=== PATIENT | male | born 1960 | race African-American/Black ===

== ENCOUNTER 2024-09-11 06:24 | Day surgery (SDC) | payer OTHER ==
[2024-09-04 12:39] VITALS: BMI 32.1
[2024-09-11] MEDS ORDERED: GENTAMICIN SO4 80 MG/2 ML VIAL ONE (07:14)
[2024-09-11] MEDS ORDERED: BUPIVACAINE HCL/PF 0.5% (5MG/ML) 10 ML VIAL ONE (07:14)
[2024-09-11] MEDS ORDERED: LIDOCAINE HCL 1%, 10 MG/ML (20ML VIAL) ONE (07:14)
[2024-09-11] MEDS ORDERED: DEXAMETHASONE SOD PHOSPHATE 4 MG/1 ML VIAL ONE (07:14)
[2024-09-11] MEDS ORDERED: ONDANSETRON 4 MG/2 ML VIAL IVPUSH PRN (07:29)
[2024-09-11] MEDS ORDERED: ACETAMINOPHEN 1000 MG/100 ML BAG IVPB PRN (07:30)
[2024-09-11] MEDS ORDERED: PROPOFOL 20 ML ONE (07:37)
[2024-09-11] MEDS ORDERED: MIDAZOLAM HCL 2 MG/2 ML SINGLE DOSE VIAL ONE (07:37)
[2024-09-11] MEDS: BUPIVACAINE HCL/PF 0.5% (5MG/ML) 10 ML VIAL IJ ONE ×2 (07:46→08:10)
[2024-09-11] MEDS ORDERED: KETOROLAC TROMETHAMINE 30 MG/1 ML VIAL ONE (07:46)
[2024-09-11] MEDS: LIDOCAINE HCL 1%, 10 MG/ML (20ML VIAL) INF ONE (07:46)
[2024-09-11] MEDS ORDERED: LABETALOL HCL 20 MG/4 ML VIAL ONE (07:55)
[2024-09-11] MEDS: DEXAMETHASONE SOD PHOSPHATE 10 MG/1 ML VIAL IM ONE (08:10)
[2024-09-11] MEDS: LACTATED RINGERS SOLUTION 1,000 ML IV SCH (08:52)
[2024-09-11 10:04] VITALS: RESP 18
[2024-09-11 11:46] VITALS: BP 134/82; PULSE 84; TEMP 97.2
== END 2024-09-11 12:20 | disposition home or self-care (01) ==
LOC: JASU-SURG 06:24
PROVIDERS: ATTEND Podiatrist Foot Surgery
PROC: 0SRP0JZ Replacement of Right Toe Phalangeal Joint with Synthetic Substitute, Open Approach (ICD-10-PCS; principal; 2024-09-11 07:30)
DX: M20.41 Other hammer toe(s) (acquired), right foot (principal)
CPT/HCPCS: 73630-TC-RT-FY; 82962; 88305-TC; 88311-TC; 94760; J1100